=== PATIENT | female | born 1990 | race Caucasian/White ===

== ENCOUNTER → 2024-01-27 08:01 | Outpatient (REF) | payer OTHER, SELFPAY | LOC: PNTC 08:01 | PROVIDERS: ATTENDING PHYSICIAN Obstetrics & Gynecology | DX: Z36.0 Encounter for antenatal screening for chromosomal anomalies (principal); Z34.80 Encounter for supervision of other normal pregnancy, unspecified trimester; Z36.4 Encounter for antenatal screening for fetal growth retardation; P05.9 Newborn affected by slow intrauterine growth, unspecified | CPT/HCPCS: 59025; 76815; 76820 ==

== ENCOUNTER → 2024-02-03 07:02 | Outpatient (REF) | payer OTHER, SELFPAY | LOC: PNTC 07:02 | PROVIDERS: ATTENDING PHYSICIAN Obstetrics & Gynecology | DX: Z36.0 Encounter for antenatal screening for chromosomal anomalies (principal) | CPT/HCPCS: 59025; 76815; 76820 ==

== ENCOUNTER → 2024-02-10 11:00 | Outpatient (REF) | payer OTHER, SELFPAY | LOC: PNTC 11:00 | PROVIDERS: ATTENDING PHYSICIAN Obstetrics & Gynecology | DX: O36.5990 Maternal care for other known or suspected poor fetal growth, unspecified trimester, not applicable or unspecified (principal) | CPT/HCPCS: 59025; 76816; 76820 ==

== ENCOUNTER → 2024-03-02 07:45 | Outpatient (REF) | payer OTHER, SELFPAY | LOC: PNTC 07:45 | PROVIDERS: ATTENDING PHYSICIAN Obstetrics & Gynecology | DX: O36.5120 Maternal care for known or suspected placental insufficiency, second trimester, not applicable or unspecified (principal) | CPT/HCPCS: 36415; 59025; 76816; 76820 ==

== ENCOUNTER → 2024-03-09 10:54 | Outpatient (REF) | payer OTHER, SELFPAY | LOC: PNTC 10:54 | PROVIDERS: ATTENDING PHYSICIAN Obstetrics & Gynecology | DX: O36.5990 Maternal care for other known or suspected poor fetal growth, unspecified trimester, not applicable or unspecified (principal) | CPT/HCPCS: 59025; 76815; 76820 ==

== ENCOUNTER 2024-03-10 07:10 | Inpatient (IN) | payer OTHER, SELFPAY ==
[2024-03-10 07:32] VITALS: BP 115/81; BMI 27.1
[2024-03-10] MEDS: LR 1000 IV ×2 (07:47→08:52)
[2024-03-10 08:16] LABS: Hematocrit 35.1 % (37.0-47.0); Hemoglobin 12.8 g/dL (12.0-16.0); Mean Corp Hgb Conc. 36.5 g/dL (33.0-37.0); Mean Corpuscular Volume 82.2 fL (81.0-99.0); Platelet Count 255 10^3/uL (130-400); Red Blood Cell Count 4.27 10^6/uL (4.20-5.40); Red Cell Dist. Width 12.7 % (11.5-14.5); White Blood Cell Count 9.3 10^3/uL (4.8-10.8)
[2024-03-10] MEDS: TYLENOL 1000 MG PO (08:47)
[2024-03-10] MEDS: BICITRA 30 ML PO (08:47)
[2024-03-10] MEDS: ANCEF 10 IV (10:00)
[2024-03-10] MEDS: TORADOL 15 MG IV ×2 (16:46→22:11)
[2024-03-11] MEDS: TORADOL 15 MG IV ×4 (03:24→22:15)
[2024-03-11 05:49] LABS: Hematocrit 32.1 % (37.0-47.0); Hemoglobin 11.2 g/dL (12.0-16.0); Mean Corp Hgb Conc. 34.9 g/dL (33.0-37.0); Mean Corpuscular Hgb 30.1 pg (27.0-31.0); Mean Corpuscular Volume 86.3 fL (81.0-99.0); Mean Platelet Volume 10.2 fL (7.4-10.4); Platelet Count 219 10^3/uL (130-400); Red Blood Cell Count 3.72 10^6/uL (4.20-5.40); Red Cell Dist. Width 12.9 % (11.5-14.5); White Blood Cell Count 13.5 10^3/uL (4.8-10.8)
--- NOTE | 2024-03-11 07:19 | W.PN.ANS.POP ---
Anesthesia Post Operative
- Anesthesia Post Op Note
Vital Signs Stable-See Nursing Note: Yes
Airway Patent: Yes
Adequate Pain Control: Yes
Change in Mental Status: No
Current Postoperative Nausea & Vomiting: No
Anesthesia Complications: No
General Anesthetic Recall: No
Unplanned Admission: No
Post Op Hydration Adequate: Yes
[2024-03-11] MEDS: SENOKOT-S 1 TABLET PO (10:14)
[2024-03-11] MEDS: MYLICON 80 MG PO (10:14)
[2024-03-11] MEDS: PRENATAL PLUS 1 TABLET PO (10:16)
[2024-03-11] MEDS: TYLENOL 650 MG PO ×2 (14:54→21:15)
[2024-03-12] MEDS: TYLENOL 650 MG PO ×4 (04:44→23:07)
[2024-03-12] MEDS: MOTRIN 600 MG PO ×4 (04:44→23:07)
[2024-03-12] MEDS: PRENATAL PLUS 1 TABLET PO (08:15)
[2024-03-12] MEDS: SENOKOT-S 1 TABLET PO (08:29)
[2024-03-12] MEDS: ZYRTEC 5 MG PO (14:18)
[2024-03-13] MEDS: TYLENOL 650 MG PO ×2 (05:21→09:56)
[2024-03-13] MEDS: MOTRIN 600 MG PO ×2 (05:21→11:12)
[2024-03-13] MEDS: PRENATAL PLUS 1 TABLET PO (08:46)
[2024-03-13] MEDS: ZYRTEC 5 MG PO (08:46)
[2024-03-13] MEDS: SENOKOT-S 1 TABLET PO (08:47)
[2024-03-13 12:09] LABS: Syphilis/T. pallidum Ab Reflex Negative (Negative)
== END 2024-03-13 11:45 | disposition home or self-care (01) | DRG 788 ==
LOC: LDRP 07:10
PROVIDERS: ADMITTING PHYSICIAN Obstetrics & Gynecology
PROC: 10D00Z1 Extraction of Products of Conception, Low, Open Approach (ICD-10-PCS; 2024-03-10)
PROC: 10907ZC Drainage of Amniotic Fluid, Therapeutic from Products of Conception, Via Natural or Artificial Opening (ICD-10-PCS; 2024-03-10)
DX: O34.211 Maternal care for low transverse scar from previous cesarean delivery (principal); O36.5930 Maternal care for other known or suspected poor fetal growth, third trimester, not applicable or unspecified; Z3A.39 39 weeks gestation of pregnancy; Z37.0 Single live birth
CPT/HCPCS: 88307; 85027; 86780; 86850; 86900; 86901

== ENCOUNTER → 2024-04-22 09:50 | Outpatient (REF) | payer OTHER, SELFPAY | LOC: HWRAD 09:50 | PROVIDERS: ATTENDING PHYSICIAN Physician Assistant Medical | DX: K59.00 Constipation, unspecified (principal); R11.11 Vomiting without nausea | CPT/HCPCS: 74018 ==